=== PATIENT | male | born 2000 | race Caucasian/White ===

== ENCOUNTER 2023-11-08 00:20 | Inpatient (IN) | payer BC, SELFPAY ==
[2023-11-07 17:56] VITALS: BP 165/96
--- NOTE | 2023-11-07 19:27 | ED.GENMED ---
History of Present Illness
General
Chief Complaint: Fatigue
Source: patient
Exam Limitations: none
Time Seen by Provider: 11/07/23 19:06
Nursing documentation reviewed up to this point in time: agreed with
History of Present Illness
History of Present Illness:
23-year-old male presents emerged part complaining of fatigue, sore throat, black stool. Symptoms ongoing for about 2 to 3 days.
Past History
Past History
ED Past Medical History: None
ED Past Surgical History: None
Social History
Tobacco: Vaping
Drug: None
Personal: Single
Living: with family
Employment: Student
Review of Systems
Review of Systems
Allergies reviewed?: Yes
All Other Systems: Not applicable
Constitutional: Reports fatigue and chills
EENT: Reports sore throat
Respiratory: Reports no symptoms
Cardiac: Reports no symptoms
ABD/GI: Reports black stools
: Reports no symptoms
Musculoskeletal: Reports no symptoms
Skin: Reports no symptoms
Neurological: Reports no symptoms
Endocrine: Reports no symptoms
Hematologic/Lymphatic: Reports no symptoms
Psychiatric: Reports no symptoms
Phy Exam
Physical Exam
Physical Exam:
Physical Exam
General: no apparent distress, not acutely ill
Neck: supple. no meningeal signs. normal posterior pharynx
Heart: s1/s2 tachycardia, no murmur. equal radial
pulses.
HEENT: Pupils equal round reactive to light, EOMI, mild bilateral tonsillar enlargement
Lungs: no acute respiratory distress. clear bilaterally
Abdomen: normal bowel sounds. not tender. no CVAT
Neuro: alert and oriented. no focal neurological deficits cranial nerves II through XII intact
Skin: no rash
Psychiatric: well kept. interactive and cooperative
Extremities: no edema. no calf tenderness. negative homans. good distal pulses
Course
Orders/Labs/Results
Orders:
Orders
11/07/23 19:07
IV Insert/Care/Rem.- Treatment PRN
0.9% Sodium Chloride 1000 ml [Nss] 1,000 ml IV BOLUS
11/07/23 19:37
Type+Screen Urgent
Complete Blood Count/With Diff Urgent
Comprehensive Metabolic Panel Urgent
Monotest Urgent
Rapid Strep Group A Urgent
MINISTERIO Source: Throat/Pharynx
Specimen Description:
Date Specimen was Collected: 11/07/23
Time Specimen was Collected: 19:32
11/07/23 21:37
Acetaminophen [Tylenol] 650 mg PO NOW STA
11/07/23 21:42
Pantoprazole [Protonix IV] 40 mg IV NOW STA
11/07/23 22:55
CT Neck With Iv Contrast Urgent
Comment:
Reason For Exam: Tonsillitis / Bleeding
11/07/23 22:56
Ampicillin/Sulbactam 3 G [Unasyn] 3 gm 0.9% Sodium Chloride 100 ml [Nss] 100 ml IV NOW
11/08/23 00:05
Admit/Transfer Patient As Directed
Co-Sign Provider:
Level of Care: Inpatient admission
Assign to:: Telemetry
Physician / Group: Basilio
Diagnosis: Hemorrhagic Tonsillitis
Reason for Telemetry: Arrhythmia
Date to Stop Telemetry: 11/11/23
Time to Stop Telemetry: 11:00
Reason for Hospitalization: Hemorrhagic Tonsillitis
Expected length of stay greater than two midnights?: Yes
ELOS- Estimated Length of Stay in days: 2
I certify the patient meets the requirements for IP care: Yes
11/08/23 00:06
Code Status As Directed
Resuscitation Status: Full Code
11/08/23 01:50
Acetaminophen [Tylenol] 650 mg PO Q4HPRN PRN
Ketorolac [Toradol] 15 mg IV Q6HPRN PRN
11/08/23 01:50
Consult Notification Routine
Specialty to Notify: ENT
ENT CONSULT Routine
Consulting Provider: Kolby Bonilla
Was physician already notified: No
Reason for Consult: Hemorrhagic Tonsillitis
GASTROINTESTINAL CONSULT Routine
Consulting Provider: Gagandeep Huynh
Was physician already notified: Yes
Reason for consult: Heme pos stool
Activity As Directed
Activity Level: Ambulate
EKG with chest pain [ECG as needed] As Directed
ECG as needed for:: Chest Pain
I/O [Intake/ Output] As Directed
Frequency: Per unit guidelines
Orthostatic Vital Signs As Directed
Orthostatic VS Frequency: BID
Pneumatic Compression Sleeves As Directed
Type: Knee high
Vital Signs As Directed
Frequency: Per unit guidelines
Oxygen Therapy [O2 Therapy] [RESP] Routine
Titrate/Wean O2 to maintain O2 sat greater than (%): 94
DX Deep Vein Thrombosis Video Routine
11/08/23 06:00
Basic Metabolic Panel IN AM
Complete Blood Count/No Diff IN AM
Ampicillin/Sulbactam 3 G [Unasyn] 3 gm 0.9% Sodium Chloride 100 ml [Nss] 100 ml IV Q6H
11/08/23 08:00
Pantoprazole [Protonix IV] 40 mg IV BID
11/09/23 Breakfast
NPO
Allow oral meds: Yes
Allow clear liquids: Sips of Clears
11/11/23 11:00
DC Protocol for Telemetry ONCE
Abnormal Lab Results
11/07/23
19:37
WBC 15.9 H 10^3/uL
(4.8-10.8)
Abs Immat Gran (auto) 0.1 H 10^3/uL
(0-0.05)
Absolute Neuts (auto) 11.5 H 10^3/uL
(1.4-6.5)
Absolute Monos (auto) 1.9 H 10^3/uL
(0.1-0.6)
Lymphocytes % 14.6 L %
(20.5-51.1)
Monocytes % 11.9 H %
(1.7-9.3)
Chloride 97 L mmol/L
(98-107)
11/07/23 19:37
11/07/23 19:37
Vital Signs
Initial and Last Documented VS:
Initial Vital Signs
Temp Pulse Resp BP Pulse Ox
98.6 F 110 18 165/96 96
11/07/23 17:56 11/07/23 17:56 11/07/23 17:56 11/07/23 17:56 11/07/23 17:56
Last Documented Vital Signs
Temp Pulse Resp BP Pulse Ox
99.2 F 100 18 132/96 99
11/08/23 01:57 11/08/23 01:57 11/08/23 01:57 11/08/23 01:57 11/08/23 01:57
MDM/Problems Addressed
Differential Diagnosis Includes:
GI bleed versus tonsillar bleed, melena
MDM/Problems Addressed:
23-year-old male with upper GI bleed versus tonsillar bleed. Admit to hospitalist, discussed with GI who will evaluate in a.m.,
*Pulse Oximetry
Patient hypoxic: no
*EKG
Interpreted by ED Provider?: NA
*Backwinder Interpretation
Rate: Backwinder- N/A
*Critical Care Note
Total Time (30-74mins, 75-104mins- exclusive of procedures): Not Applicable
Patient Management
Social determinants of health affecting care: Living situation and Strong social support
Discussion with other providers: Hospitalist and Ceo (Gastroenterology)
Escalation/DeEscalation of care consider admission/obs:
Admit indicated
ED Attending Note
-
Portions of this chart may have been created with voice recognition software.� Occasional wrong word or��sound alike� substitutions may have occurred due to the inherent limitations of voice recognition software.
Discharge Plan
Departure
Patient Disposition: Admit
Date of Disposition: 11/07/23
Time of Disposition: 21:41
Admit to: Med/Surg
Presentation/result/management discussed w/ accepting MD/DO: Hospitalist
Patient with high blood pressure during this ER visit?: Yes
Condition: Good
Discharge Problem:
Acute upper gastrointestinal bleeding
Interventions
Interventions:
*Risk Screen - Suicide Last Done: 11/07/23 17:56
*General Assessment Last Done: 11/07/23 17:56
*Neglect/Abuse Screening Last Done: 11/07/23 17:56
ED- Fall Risk Assessment Last Done: 11/07/23 23:27
*ED COVID-19 Vaccine History Last Done: 11/07/23 17:56
*Nursing Disposition Last Done: 11/08/23 01:49
Discharge Date and Time
Discharge Date/Time: 11/08/23 01:50
[2023-11-07 19:30] VITALS: BMI 25.2
[2023-11-07] MEDS: NSS 1000 IV (19:38)
[2023-11-07 19:40] VITALS: BP 138/88
[2023-11-07 19:49] LABS: % Basophils 0.3 % (0-2); % Eosinophils 0.4 % (0-6); % Immature Granulocytes 0.4 % (0-0.5); % Lymphocytes 14.6 % (20.5-51.1); % Monocytes 11.9 % (1.7-9.3); % Neutrophils 72.4 % (42.2-75.2); Absolute Eosinophils 0.1 10^3/uL (0-0.7); Absolute Immature Granulocytes 0.1 10^3/uL (0-0.05); Absolute Lymphocytes 2.3 10^3/uL (1.2-3.4); Absolute Monocytes 1.9 10^3/uL (0.1-0.6); Absolute Neutrophils 11.5 10^3/uL (1.4-6.5); Hematocrit 42.2 % (39.0-52.0); Hemoglobin 15.3 g/dL (13.0-18.0); Mean Corp Hgb Conc. 36.3 g/dL (33.0-37.0); Mean Corpuscular Hgb 29.7 pg (27.0-31.0); Mean Corpuscular Volume 81.8 fL (80.0-94.0); Mean Platelet Volume 8.7 fL (7.4-10.4); Nucleated Red Blood Cells % 0 % (-); Platelet Count 198 10^3/uL (130-400); Red Blood Cell Count 5.16 10^6/uL (4.70-6.10); Red Cell Dist. Width 11.6 % (11.5-14.5); White Blood Cell Count 15.9 10^3/uL (4.8-10.8)
[2023-11-07 20:00] VITALS: BP 125/85
[2023-11-07 20:03] LABS: Monotest Negative (Negative)
[2023-11-07 20:08] LABS: ALT (SGPT) 26 U/L (0-50); AST (SGOT) 27 U/L (17-59); Albumin 4.8 g/dl (3.5-5.0); Alkaline Phosphatase 78 U/L (38-126); Blood Urea Nitrogen 18 mg/dl (9-20); Calcium 9.4 mg/dl (8.4-10.2); Carbon Dioxide 26 mmol/L (22-30); Chloride 97 mmol/L (98-107); Estimated Creatinine Clearance > 125 ml/min; Glucose 98 mg/dl (70-99); Sodium 136 mmol/L (135-145); Total Bilirubin 0.9 mg/dl (0.2-1.3); Total Protein 7.9 g/dl (6.3-8.2); eGFR > 60.00
[2023-11-07 21:00] VITALS: BP 126/81
[2023-11-07 22:00] VITALS: BP 125/79
[2023-11-07] MEDS: PROTONIX IV 40 MG IV (22:16)
[2023-11-07] MEDS: TYLENOL 650 MG PO (22:16)
[2023-11-07 23:27] VITALS: BP 138/96
[2023-11-07] MEDS: UNASYN IV (23:41)
[2023-11-08] VITALS (13 sets, daily range): BP systolic 118–149; BP diastolic 71–113; BMI 24.9
--- NOTE | 2023-11-08 00:12 | HPS.HSE ---
Family Physician
-
Family Physician: * NONE
Chief Complaint
-
Sore throat, Fevers / chills, Black stools
History of Present Illness
Patient is a 23y M with no significant PMH who presents to ED complaining of fevers / chills, sore throat, headache and black stools. Patient states that he initially developed shaking chills on Saturday evening. On Saturday he continued with
shaking chills and developed sore throat and headache. He has significant pain with swallowing. Patient has noted coughing up of 'globs' of congealed blood at times. He has taken only NyQuil for his symptoms - no Advil, Motrin, Aleve, etc.
Today he had a small, normal BM followed by two episodes of loose, black stool. He presented initially to Urgent Care where strep and COVID testing was reportedly negative. He was then referred to the ED for further evaluation and treatment.
He denies any prior history of similar symptoms.
He denies any lightheadedness, dizziness, SOB, etc.
He has no chronic illness and takes no daily medications.
Medical History
Past Medical History
Past Medical History: Reports None
Past Surgical History: Reports None
Social History
Tobacco: Vaping
Alcohol: Occasional
Drug: Marijuana (Occasional)
Personal: Single
Family History
Family History: Not pertinent
Allergies / Home Medications
Allergies reflects when Allergies were last updated in [employer].
Home Medications with original date entered in [employer]
Allergy/Medication List:
Allergies
Allergy/AdvReac Type Severity Reaction Status Date / Time
No Known Allergies Allergy Unverified 11/07/23 17:58
Home Medications
No Meds [No Current Medications] 11/07/23
Review of Systems
-
History Source: Patient
A 12 point ROS was completed and negative except as noted: Yes
Constitutional: Reports Fever, Fatigue and Chills
EENT: Reports Sore Throat; Denies Runny Nose
Respiratory: Reports Hemoptysis; Denies Cough or Trouble Breathing
Cardiac: Denies Chest Pain or Palpitations
Abdomen/GI: Reports Diarrhea and Black Stools; Denies Abdominal Pain, Nausea or Vomiting
: Denies Dysuria or Frequency
Musculoskeletal: Denies Joint Pain or Edema
Neurological: Reports Headache; Denies Dizzy
Psych: Denies Depression or Anxiety
Physical Exam
Vital Signs
Vital Signs
Temp Pulse Resp BP Pulse Ox
99.7 F 104 20 138/96 99
11/07/23 23:27 11/07/23 23:27 11/07/23 23:27 11/07/23 23:27 11/07/23 23:27
Physical Exam
General: Other (23y M in mild distress due to sore throat. Diaphoretic.)
HEENT: Other (Posterior oropharynx erythema. Significant tonsillar enlargement - R > L. Pos exudates. No appreciated bleeding / ulcerations.)
Respiratory: Clear; No Wheezes, Rales or Rhonchi
Cardiac: S1/S2 and Regular Rhythm; No Murmur
GI: Soft, Non Tender, Non Distended and Normal Bowel Sounds
Musculoskeletal: No Clubbing, No Cyanosis and No Edema
Neuro: AO x 3
Laboratory Results
-
11/07/23 19:37
11/07/23 19:37
Laboratory Results
Total Bilirubin 0.9 mg/dl (0.2-1.3) 11/07/23 19:37
AST 27 U/L (17-59) 11/07/23 19:37
ALT 26 U/L (0-50) 11/07/23 19:37
Alkaline Phosphatase 78 U/L (38-126) 11/07/23 19:37
Impression/Plan
-
A/P: Patient is a 23y M with no significant PMH who presents to ED complaining of sore throat, fevers / chills and black stools.
Acute Tonsillitis
- Admit for further evaluation and treatment.
- ? hemorrhagic tonsillitis based on provided history / noted melena.
- IV Unasyn.
- Supportive care including pain control, antipyretics, etc.
- CT done this evening shows no evidence of active bleeding or abscess.
- ENT evaluation for further recommendations.
- Follow for clinical improvement.
Melena
- Suspect that this reflects ingested blood from above process rather than primary GI source based on provided history.
- IV PPI for now.
- Follow H&H for any changes.
- GI evaluation.
DVT Prophylaxis: SCDs
Code Status: Full
[2023-11-08] MEDS: TORADOL 15 MG IV (02:09)
--- NOTE | 2023-11-08 02:20 | PTCARENOTE ---
Pt. arrived to unit from ED via stretcher. Pt. able to safely ambulate into room 339-2 on . Pt. AAOx3 and able to make needs known. Telemetry placed on patient per orders. Oriented to unit. Call hartley within reach. Plan of care ongoing.
[2023-11-08] MEDS: UNASYN IV ×3 (05:58→17:03)
[2023-11-08 07:11] LABS: Hematocrit 35.8 % (39.0-52.0); Hemoglobin 12.8 g/dL (13.0-18.0); Mean Corp Hgb Conc. 35.8 g/dL (33.0-37.0); Mean Platelet Volume 8.7 fL (7.4-10.4); Platelet Count 203 10^3/uL (130-400); Red Blood Cell Count 4.26 10^6/uL (4.70-6.10); Red Cell Dist. Width 11.8 % (11.5-14.5); White Blood Cell Count 18.3 10^3/uL (4.8-10.8)
[2023-11-08 07:54] LABS: Blood Urea Nitrogen 33 mg/dl (9-20); Calcium 8.8 mg/dl (8.4-10.2); Carbon Dioxide 29 mmol/L (22-30); Chloride 101 mmol/L (98-107); Estimated Creatinine Clearance > 125 ml/min; Glucose 88 mg/dl (70-99); Potassium 3.9 mmol/L (3.5-5.1); Sodium 138 mmol/L (135-145); eGFR > 60.00
[2023-11-08] MEDS: PROTONIX IV 40 MG IV ×2 (08:13→19:45)
[2023-11-08] MEDS: NSS (PRESERVATIVE FREE) 10 ML IV ×2 (08:14→19:44)
--- NOTE | 2023-11-08 12:07 | CON.MD ---
Consultation - Medical
-
dictated.
active bleeding from R inferior tonsil/tongue junction, no resolution with peroxide gargling, re-observed over 30'.
will take to OR to control bleeding.
--- NOTE | 2023-11-08 13:44 | W.PN.UPDATE ---
Update Note
Progress Note Update
bleeding at R tonsil inferior pole cauterized. small biopsy taken of tonsil in this area but does not appear suspicious for neoplasm. stomach lavaged.
most likely he has acute tonsillitis with an ulceration that just happened to be near a vessel.
please avoid toradol and other NSAIDs.
will evaluate in AM and if no bleeding and taking po's could be discharged then, on po abx.
[2023-11-08] MEDS: ZOFRAN 4 MG IV (14:28)
--- NOTE | 2023-11-08 15:03 | W.PN.HOSP.TC ---
Today's Communication/Plan
-
anticipate d/c in AM
Assessment / Plan
Assessment / Plan
pt is a 23 year old male
Acute Tonsillitis with tonsillar bleeding-- IV Unasyn--apprec ENT s/p OR 11/08/23- - Supportive care including pain control, antipyretics, etc.-- CT done this evening shows no evidence of active bleeding or abscess.
Melena - ingested blood from tonsillitis--cancel GI eval
DVT Prophylaxis: SCDs
Code Status: Full
Anticipated Discharge: Within 24 hours
Subjective/Interval History
-
Date of Service: November 08, 2023
pt just returned from the OR--no c/o
Objective Data
-
Labs:
Laboratory Results
11/08/23
06:57
WBC 18.3 H
Hgb 12.8 L
Hct 35.8 L
Plt Count 203
Sodium 138
Potassium 3.9
Chloride 101
Carbon Dioxide 29
BUN 33 H
Creatinine 0.8
Glucose 88
Calcium 8.8
Vital Signs:
max temp for 24 hours
11/07/23
23:27
Temp 99.7 F
Vital Signs
Temp Pulse Resp BP Pulse Ox
98.3 F 97 19 130/80 98
11/08/23 13:48 11/08/23 14:45 11/08/23 14:45 11/08/23 14:45 11/08/23 14:45
Review of Systems
-
All other systems: Reviewed and negative
Physical Exam
-
General: Well Developed, Well Nourished and No Apparent Distress
HEENT: Normocephalic, Atraumatic and Other (large tonsils)
Respiratory: Clear to Auscultation; Negative Wheezes or Rhonchi
Cardiac: Regular Rhythm and S1/S2; Negative Murmur
GI: Soft, Nontender, Nondistended and Normal Bowel Sounds
Musculoskeletal: No Clubbing, No Cyanosis and No Edema
--- NOTE | 2023-11-08 17:02 | CM ---
Alert awake oriented patient who lives with his friend Bairon who lives in a 2 story home with 0 step to enter and bed and bathroom on first floor. He goes to college in [place].He is independent in driving and in all activities of daily living.He was
offered VN he declined need.He had surgery.
No VN hx / No SNF history
Pharmacy [facility]
PCP DR Samir [place]
PLAN Home Declined VN
[2023-11-09] MEDS: UNASYN IV ×2 (00:02→06:52)
[2023-11-09 07:03] LABS: Hematocrit 28.8 % (39.0-52.0); Hemoglobin 10.3 g/dL (13.0-18.0); Mean Corp Hgb Conc. 35.8 g/dL (33.0-37.0); Mean Corpuscular Hgb 29.5 pg (27.0-31.0); Mean Corpuscular Volume 82.5 fL (80.0-94.0); Mean Platelet Volume 9.2 fL (7.4-10.4); Platelet Count 237 10^3/uL (130-400); Red Blood Cell Count 3.49 10^6/uL (4.70-6.10); Red Cell Dist. Width 11.6 % (11.5-14.5); White Blood Cell Count 11.5 10^3/uL (4.8-10.8)
[2023-11-09 07:22] LABS: Blood Urea Nitrogen 16 mg/dl (9-20); Calcium 9.1 mg/dl (8.4-10.2); Carbon Dioxide 26 mmol/L (22-30); Chloride 102 mmol/L (98-107); Estimated Creatinine Clearance > 125 ml/min; Glucose 115 mg/dl (70-99); Potassium 4.5 mmol/L (3.5-5.1); Sodium 137 mmol/L (135-145); eGFR > 60.00
[2023-11-09 08:00] VITALS: BP 126/72
--- NOTE | 2023-11-09 08:25 | W.PN.ENT ---
Today's Communication
-
acute R tonsillitis with hemorrhage, well controlled
CBC pending. as long as Hb acceptable, could dc to home.
Recommend augmentin for 7 days.
I will call him with pathology results
He will call me for any worsening sx or return of hemoptysis.
Impression / Plan
-
acute R tonsillitis with hemorrhage, well controlled
CBC pending. as long as Hb acceptable, could dc to home.
Recommend augmentin for 7 days.
I will call him with pathology results
He will call me for any worsening sx or return of hemoptysis.
Subjective Data
-
had little sore throat, resolved.
+po's
no further bleeding
no dyspnea
Objective Data
-
Vital Signs
Temp Pulse Resp BP Pulse Ox
98.8 F 94 20 130/74 99
11/08/23 23:00 11/08/23 23:00 11/08/23 23:00 11/08/23 23:00 11/08/23 23:00
Intake & Output
11/08/23 11/09/23 11/10/23
06:59 06:59 06:59
Intake:
Oral fluids 840 / 840
IV fluids (Total) 100 / 100
normosol 100 / 100
Other:
Number of approximated MODERATE 2
amounts of urine
Number of unmeasured liquid
stools
Rectum 4
Lab Results
11/09/23 06:44
Calcium 9.1 mg/dl (8.4-10.2) 11/09/23 06:44
Total Bilirubin 0.9 mg/dl (0.2-1.3) 11/07/23 19:37
AST 27 U/L (17-59) 11/07/23 19:37
ALT 26 U/L (0-50) 11/07/23 19:37
Alkaline Phosphatase 78 U/L (38-126) 11/07/23 19:37
Physical Exam
-
no hoarseness, stridor, drool
OC/OP R tonsil 1-2+, no further erythema, no bleeding
neck no masses or tenderness
[2023-11-09] MEDS: NSS (PRESERVATIVE FREE) 10 ML IV (09:34)
[2023-11-09] MEDS: PROTONIX IV 40 MG IV (09:34)
--- NOTE | 2023-11-09 10:17 | W.PN.HOSP.TC ---
Today's Communication/Plan
-
d/c and follow up with ENT
Assessment / Plan
Assessment / Plan
pt is a 23 year old male
Acute Tonsillitis with tonsillar bleeding--due to Group C strep-- IV Unasyn to Augmentin--apprec ENT s/p OR 11/08/23- - Supportive care including pain control, antipyretics, etc.
acute blood loss anemia from tonsillar bleeding--likely dehydrated on admission which explains some drop--HGB essentially stable
Melena - ingested blood from tonsillitis--cancel GI eval
DVT Prophylaxis: SCDs
Code Status: Full
Anticipated Discharge: Today
Subjective/Interval History
-
Date of Service: November 09, 2023
pt without c/o--tolerating diet
Objective Data
-
Labs:
Laboratory Results
11/09/23
06:44
WBC 11.5 H
Hgb 10.3 L
Hct 28.8 L
Plt Count 237
Sodium 137
Potassium 4.5
Chloride 102
Carbon Dioxide 26
BUN 16
Creatinine 0.8
Glucose 115 H
Calcium 9.1
Vital Signs:
max temp for 24 hours
11/08/23
23:00
Temp 98.8 F
Vital Signs
Temp Pulse Resp BP Pulse Ox
98.8 F 94 20 130/74 99
11/08/23 23:00 11/08/23 23:00 11/08/23 23:00 11/08/23 23:00 11/08/23 23:00
I&O
11/08/23 11/09/23 11/10/23
06:59 06:59 06:59
Intake Total 940 / 940
Balance 940 / 940
Review of Systems
-
All other systems: Reviewed and negative
Physical Exam
-
General: Well Developed, Well Nourished and No Apparent Distress
HEENT: Normocephalic, Atraumatic and Other (enlarged right tonsil improved)
Respiratory: Clear to Auscultation; Negative Wheezes, Rales, Rhonchi or Crackles
Cardiac: Regular Rhythm and S1/S2; Negative Murmur
GI: Soft, Nontender, Nondistended and Normal Bowel Sounds
Musculoskeletal: No Clubbing, No Cyanosis and No Edema
Skin: Warm
Neuro: Awake
--- NOTE | 2023-11-09 12:22 | W.DCSUMMARY ---
Discharge Summary
Discharge Data
Date of Admission: 11/08/23
Date of Discharge: 11/09/23
-
Pending Results: Yes
Additional Pending Results:
biopsy from tonsil
Hospital Course
Primary care physician : None listed
Principal Discharge diagnosis : Acute tonsillitis due to group C strep with tonsillar bleeding, acute blood loss anemia from tonsillar bleeding, melena from tonsillar bleeding
Chronic Discharge diagnosis : None
Hospital Course : Patient was a 23-year-old male who presented complaining of fevers, chills, sore throat, headache, and black stools. He developed shaking chills on the Saturday evening prior to admission. He continued with that on Saturday and
developed a sore throat and headache. He had significant pain with swallowing. Patient also noted he was bringing up 'globs' of blood at times. He was only taking NyQuil for his symptoms. He presented to urgent care where strep and COVID testing
was negative. He was then referred to the ED. Patient was admitted.
Problem #1: Acute tonsillitis due to group C strep with tonsillar bleeding. Patient was admitted and started on IV Unasyn. Culture was obtained which showed group C strep. Rapid strep was negative. ENT took the patient to the operating room on
November 08, 2023. Biopsy was also taken at that time. That remains pending. Bleeding has since stopped. Supportive care was given. He will follow-up with ENT at discharge. CAT scan of the neck was done on admission which was negative for abscess
Problem #2: Acute blood loss anemia from tonsillar bleeding. Hemoglobin on admission was 15 and this was likely due to dehydration. After rehydration and mild ongoing bleeding that has been stopped through surgery; hemoglobin dropped to 12 and
subsequently 10.3.
Problem #3: Melena from tonsillar bleeding. GI was initially consulted however, GI consult was canceled as ENT did examine the patient at bedside and found active tonsillar bleeding.
Patient is stable for discharge home at this time. If there are any questions regarding this dictation or his hospital stay, please not hesitate to call. Our office number is [phone].
Important imaging findings :
CT SCAN NECK IMPRESSION:
Findings suggesting uncomplicated tonsillitis. No abscess.
Discharge Plan
-
Patient Disposition: Home (Routine Discharge)
Discharge Diagnosis/Procedures: Acute group C tonsillitis with tonsillar bleeding, acute blood loss anemia s/p tonsil cautery
Condition: Good
Diet: As tolerated
Activity: As tolerated
Driving Restrictions: As prior to admission
Bathing Restrictions: None
Referrals:
Kolby Bonilla MD [Active] - (As directed)
NONE,* [Family Provider] - in less than 1 week
Prescriptions:
New
acetaminophen 325 mg Tablet
650 mg PO Q4HPRN PRN (Reason: Mild Pain / Temp > 101) Qty: 0 0RF
amoxicillin-pot clavulanate 875-125 mg tablet
1 tab PO BID Qty: 14 0RF
Discharge Orders:
Discharge Patient (As Directed); Ordered 11/09/23
Ordered By: Ruchi Sanford
Discharge Date and Time
Discharge Date/Time: 11/09/23 10:45
Print Language: GU[place]AL[place]
== END 2023-11-09 10:45 | disposition home or self-care (01) | DRG 144 ==
LOC: 3 WEST ACU 00:20
PROVIDERS: Emergency Medicine; ADMITTING PHYSICIAN Hospitalist; ATTENDING PHYSICIAN Internal Medicine; CONSULT PHYSICIAN Otolaryngology; EMERGENCY PHYSICIAN Emergency Medicine
PROC: 0C5PXZZ Destruction of Tonsils, External Approach (ICD-10-PCS; 2023-11-08)
PROC: 3E1G78Z Irrigation of Upper GI using Irrigating Substance, Via Natural or Artificial Opening (ICD-10-PCS; 2023-11-08)
PROC: 0CBPXZX Excision of Tonsils, External Approach, Diagnostic (ICD-10-PCS; 2023-11-08)
PROC: 0D9670Z Drainage of Stomach with Drainage Device, Via Natural or Artificial Opening (ICD-10-PCS; 2023-11-08)
DX: J03.90 Acute tonsillitis, unspecified (principal); D62 Acute posthemorrhagic anemia; K92.1 Melena; J35.8 Other chronic diseases of tonsils and adenoids; R04.1 Hemorrhage from throat; F17.290 Nicotine dependence, other tobacco product, uncomplicated; R13.10 Dysphagia, unspecified; B95.4 Other streptococcus as the cause of diseases classified elsewhere; E86.0 Dehydration
CPT/HCPCS: 88305; 70491; 80048; 80053; 85025; 85027; 86308; 86850; 86900; 86901; 87070; 87147; 87880; 88341; 88342; 96361; 96365; 96375; 99285; 99406; Q9967